=== PATIENT | female | born 1975 | race Caucasian/White ===

== ENCOUNTER 2016-10-04 13:16 | Emergency (ER) | payer BC ==
[~2016-10-04] VITALS: Ht 157.5 cm; Wt 90.3 kg
--- OUTSIDE RECORDS SUMMARY | 2016-10-04 13:45 | External Medical Summary Rpt ---
Author Author BRUNILDA Address Unknown Phone [email or web address] Purpose Continuity of Care Document - through 2016
--- OUTSIDE RECORDS SUMMARY | 2016-10-04 13:45 | External Medical Summary Rpt ---
Author Author BRUNILDA Address Unknown Phone [email or web address] Purpose Continuity of Care Document - through 2016
--- OUTSIDE RECORDS SUMMARY | 2016-10-04 13:46 | External Medical Summary Rpt ---
Author Author BRUNILDA Address Unknown Phone [email or web address] Purpose Continuity of Care Document - through 2016
--- OUTSIDE RECORDS SUMMARY | 2016-10-04 13:46 | External Medical Summary Rpt ---
Demographics Preferred Language Israeli Marital Status Unknown Scientologist Affiliation Unknown Race Unknown Ethnic Group Unknown Author Author , BRUNILDA WORLEY Address Unknown Phone Immunization Unable to retrieve immunization data due to connection failure with Immunization Registry. Please try again later.
--- OUTSIDE RECORDS SUMMARY | 2016-10-04 13:46 | External Medical Summary Rpt ---
Author Author BRUNILDA Garcia, [employer]UN[employer] Organization [employer] Address Unknown Phone Unavailable
--- OUTSIDE RECORDS SUMMARY | 2016-10-04 13:46 | External Medical Summary Rpt ---
Demographics Preferred Language Kittitian Marital Status Unknown Mandaen Affiliation Unknown Race Unknown Ethnic Group Unknown Author Author , BRUNILDA WORLEY Address Unknown Phone Immunization Unable to retrieve immunization data due to connection failure with Immunization Registry. Please try again later.
--- OUTSIDE RECORDS SUMMARY | 2016-10-04 13:46 | External Medical Summary Rpt ---
Author Author BRUNILDA Address Unknown Phone [email or web address] Purpose Continuity of Care Document - through 2016
[2016-10-04] MEDS ORDERED: CLONIDINE HCL0.1 M1 PO (13:48)
[2016-10-04] MEDS ORDERED: MELOXICAM7.5 MG PO (13:49)
--- NOTE | 2016-10-04 13:56 | Emergency Room Report ---
History of Present Illness Time Seen by MD [place] Presenting Problem in Triage Pt arrived:Wheelchair Presenting Problem:HIGH BLOOD PRESSURE Onset of symptoms date/time:10/01/16 or onset unknown for: Treatment Prior to Arrival: TOOK CLONIDINE AND MELOXICAM 7.5MG THIS AM AT 0730 [employer] Provided by:CLONODINE 0.1MG Sepsis Risk Assessment: Temp: 98.1 B/P: 170/95 MAP: 120 Pulse: 104 Resp: 18 Recent fever? N Clinical Suspician of Infection? N Mental Status: 1 - Regular (Normal Baseline) Sepsis Risk:Low Sepsis Risk Have you (or family members/close friends) recently traveled outside the [place]? N If Yes, where/when: Have you had exposure to infectious disease within the past month? N TB? Other? Specify: Patient with elevated blood pressure. States tripped on a step, hurt both ankles three days ago, was seen at outside ER and xrays of right ankle and foot done. She was told she had elevated BP and Rx Clonidine; she has noted BP to be quite elevated today at home. She states her pain is well controlled on Meloxicam. She reports left ankle pain and is using a wheelchair now. ALLERGIES Coded Allergies: codeine (Intermediate, HALLUCINATIONS 10/04/16) Home Medications Reported Medications CLONIDINE HCL (Clonidine 0.1MG) 0.1 MG PO BID #20 Meloxicam (Meloxicam 7.5MG) 7.5 MG PO BID #20 History Medical History General CAD? No Angina: No NC: No Hypertension? Yes CHF? No DVT? No PE? No COPD? No Asthma? No Anemia? No GERD? No Gastric ulcers? No GI Bleed? No Hernia? No Thyroid Problems? No Hypothyroidism? No CVA? No Seizures? No Diabetes? No Renal Insuffiency? No End Stage Renal Disease? No UTI? No Stones? No BPH? No GB Disease: No Nephritic Syndrome? No Asplenia? No Hepatitis? No Sickle Cell Disease? No Arthritis? No Migraines? No Cataracts? No Glaucoma? No MRSA? No HIV? No TB? No Anxiety? Yes Depression? No Cancer? No Immunization Hx DT/Tetanus 1-4 Years Ago Surgical Hx Previous Surgery?N [employer]ER Hx LMP 1-6 Days Ago Social History Smoking Hx Smoker: Never Smoker Tobacco: No Type Cigarettes Are you/the child exposed to second-hand smoke: No Alcohol Alcohol: No Review of Systems All Other Systems Reviewed and Negative Musculoskeletal see HPI Physical Exam Vital Signs Vital Signs Date Time Temp Pulse Resp B/P Pulse O2 O2 Flow FiO2 Ox Delivery Rate 10/04 1511 82 20 156/92 96 10/04 1444 93 16 208/101 98 10/04 1403 79 14 192/87 96 10/04 1323 98.1 104 18 170/95 99 General Appearance normal appearance, WD/WN, no apparent distress, obese Eye Exam - bilateral eye normal exam, bilateral eye PERRL, bilateral eye EOMI Neck normal inspection, full range of motion Respiratory Status Yes: trachea midline, chest symmetrical, non tender chest. No: respiratory distress, tender on palpation, use of accessory muscles, pain on inspiration, pain on expiration, productive cough, non productive cough. Cardiovascular normal exam, regular rate/rhythm, no peripheral edema, no gallop, no JVD, no murmur, no rub Extremities diffuse ecchymosis, right ankle and dorsum, right foot; diffuse tenderness, left ankle anteriorly and slightly laterally. No crepitus, deformities, or stepoffs noted. FROM. Fully sensate. Well perfused. Strength 5 Upper Ext (L), 5 Upper Ext (R), 5 Lower Ext (L), 5 Lower Ext (R) Neurologic alert, normal exam, no motor/sensory deficits, oriented x 3 Glascow Coma Scale Glascow Coma Scale Response Value EYE response: 4 Spontaneously 4 MOTOR response: 6 OBEYS 6 VERBAL response: 5 Oriented & Converses 5 Total 15 Skin intact, normal color, warm/dry Medical Decision Making LABS/Meds/Orders Pt receiving controlled substance in ED? No Results/Orders Laboratory Tests 10/04/16 1405: Sodium 136, Potassium 3.7, Chloride 101, Carbon Dioxide 23, BUN 18, Creatinine 0.8, Estimated Creat Clear 133, Estimated GFR (MDRD) 79, Glucose 105, Calcium 9.5, Total Bilirubin 0.6, AST 13 L, ALT 18, Alkaline Phosphatase 62, Troponin I < 0.02, Total Protein 9.0 H, Albumin 4.4, Globulin 4.6 H, Albumin/Globulin Ratio 1.0 L, WBC 11.0 H, RBC 5.48 H, Hgb 15.7, Hct 47.4 H, MCV 86.5, RDW 13.6, Plt Count 316, MPV 6.9 L, Gran % 80.6 H, Gran # 8.9 H, Lymphocytes % 14.6, Monocytes % 4.5, Eosinophils % 0.3, Basophils % 0.1, Lymphocytes # 1.6, Monocytes # 0.5, Eosinophils # 0.0, Basophils # 0.0, PUBS MCHC 33.2, MCH 28.7 Current Medication Orders Sig/Aline Start time Last Medication Dose Route Stop Time Status Admin Acetaminophen 0 .STK-MED ONE 10/04 1501 DC PO Acetaminophen 500 MG ONCE ONE 10/04 1500 DC 10/04 PO 10/04 1501 1502 Clonidine HCl 0.1 MG ONCE ONE 10/04 1445 DC 10/04 PO 10/04 1446 1442 Clonidine HCl 0 .STK-MED ONE 10/04 1440 DC .ROUTE Levofloxacin/Dextrose 100 ML ONCE ONE 10/04 1415 CANr IV 10/04 1514 Sodium Chloride 10 ML PRN PRN 10/04 1400 AC IV 10/05 1352 Orders Procedure Date/time Status FOOT-LT-3 VIEWS 10/04 1412 Active ELECTROCARDIOGRAM REQUEST 10/04 1352 Active CHEST-PORTABLE 10/04 135 Active ANKLE-LT-3 VIEWS 10/04 1352 Active IV SALINE LOCK 10/04 1352 Active GEN NSG/PT REQ (NOT FOR MEDS!) 10/04 1352 Active TROPONIN I 10/04 135 Complete CBC WITH AUTO DIFF 10/04 1352 Complete CHEM 12 PROFILE 10/04 1352 Complete CM/EKG CM/EKG EKG rate (97), NSR, rhythm, no evid. of ischemic chgs, no ectopy, normal QRS, normal MA, normal EKG (LVH) XRAY/CT/US XRAY/CT/US XRAY chest, ankle, foot XR interpretation by reviewed by me Xray Results normal/NAD, no fracture seen, no infiltrates, normal heart size, normal lung inflation aicha Progress ED Progress Notes Date 10/04/16 Time 1520 Comment SBP in 150's, no complaint Departure Departure Time of Disposition 1450 Disposition DC Home or Self Care(routine) Clinical Impression Primary Impression: Hypertension Qualifiers: Hypertension type: unspecified Qualified Code: I10 - Essential ( primary) hypertension Secondary Impressions: Contusion of ankle, left Qualifiers: Encounter type: initial encounter Qualified Code: S90.02XA - Contusion of left ankle, initial encounter Condition STABLE Referrals HANNAH BAKER Patient Instructions High Blood Pressure Additional Instructions Increase clonidine to three times a day; weight bearing as tolerated, use crutches or cane for support; keep splint in place on right. See Dr. Hannah Baker for follow up and recheck blood pressure next week, keep appointment already in place. Try Tylenol for any discomfort. Discharge Counseling Counseled pt/family regarding diagnosis, test results, medications/RX, home care, follow up needs ED Critical Care Critical Care No at [id number]
[2016-10-04 14:12] LABS: HEMOGLOBIN 15.7 g/dL (12.2-16.2); LYMPH # 1.6 K/mm3 (0.7-4.5); LYMPH % 14.6 % (10-50.0)
[2016-10-04 14:31] LABS: BUN 18 mg/dL (7-18)
[2016-10-04 14:36] LABS: GFR (ESTIMATED) 79 ML/MIN (59-)
[2016-10-04 15:11] VITALS: BP 156/92
--- NOTE | 2016-10-05 07:49 | RADIOLOGY REPORT PS360 ---
ANKLE-LT-3 VIEWS COMPARISON: None HISTORY: Left ankle pain TECHNIQUE: AP lateral and oblique views FINDINGS: The medial and lateral malleolus appear intact iliac mortise is normal. There is no significant soft tissue swelling. IMPRESSION: Negative left ankle
--- NOTE | 2016-10-05 07:50 | RADIOLOGY REPORT PS360 ---
FOOT-LT-3 VIEWS COMPARISON: None HISTORY: Left foot pain TECHNIQUE: AP lateral and oblique views FINDINGS: The tarsal bones metatarsals and phalanges appear intact with no evidence of recent or old fracture. There is an accessory no ventricular bone a normal variation. The plantar arch is normal. There are spurs of the calcaneus at insertion of Achilles tendon and plantar tendon. There is no significant soft tissue swelling. IMPRESSION: Calcaneal spurs otherwise negative left foot
--- NOTE | 2016-10-05 07:52 | RADIOLOGY REPORT PS360 ---
CHEST-PORTABLE COMPARISON: None HISTORY: Retention TECHNIQUE: Portable upright chest FINDINGS: The lung holloway are fairly well-expanded and appear clear of infiltrate. The cardiac silhouette and vascularity are normal and the costo phrenic angles are clear. IMPRESSION: Negative portable chest
== END 2016-10-04 15:21 | disposition home or self-care (01) ==
LOC: ER 13:16
PROVIDERS: Emergency Medicine
DX: I10 Essential (primary) hypertension (principal); S90.02XA Contusion of left ankle, initial encounter